=== PATIENT | female | born 1975 | race Caucasian/White ===

== ENCOUNTER 2017-03-20 09:58 | Emergency (ER) | payer OTHER ==
[~2017-03-20] VITALS: Ht 165.1 cm; Wt 68.5 kg
[~2017-03-20 09:58] MED LIST: ACYC800T57 PO; HYDR-906 PO; IBUP-1542 PO; TRAM50TA2 PO
[2017-03-20 10:01] VITALS: Ht 165.1 cm; Wt 68.5 kg
[2017-03-20] MEDS ORDERED: CIPR500T4 PO (10:54)
[2017-03-20] MEDS ORDERED: DIPHTH/TET/ACEL PERTUSS (ADULT) 0.5 ML VIAL IM* ONE (11:00)
--- NOTE | 2017-03-20 11:20 | ERD ---
ER Documentation Chief Complaint Date/Time DATE: 03/20/17 TIME: 11:18 Chief Complaint STEPPED ON NAIL AT 5AM TODAY LEFT FOOT WANTS TETANUS SHOT HPI Patient is a 41-year-old female with a past medical history of lupus who presents to the ED with nail puncture wound on her left foot during work this morning. Patient states that she works overnight at [employer] and stepped on a nail with her tennis shoes. Denies fever or chills. Patient is not up-to-date with her recent tetanus shot. Patient has no other complaints. ROS All systems reviewed and are negative except as per history of present illness. Medications Home Meds Active Scripts Ciprofloxacin Hcl* (Ciprofloxacin Hcl*) 500 Mg Tablet, 500 MG PO BID for 3 Days , TAB Prov:LIBIA SCOTT PA-C 03/20/17 Ibuprofen* (Motrin*) 600 Mg Tab, 600 MG PO Q6, #30 TAB Prov:JEN ADAME 07/04/16 Hydrocodone/Acetaminophen ([place] 5-325 Tablet) 1 Each Tablet, 1 EACH PO Q4, #20 TAB Prov:JEN ADAME 07/04/16 Acyclovir* (Zovirax*) 800 Mg Tablet, 800 MG PO 5 TIMES DAILY for 7 Days, TAB Prov:JEN ADAME 07/04/16 Tramadol HCl (Tramadol HCl) 50 Mg Tab, 50 MG PO Q4 Y for PAIN, #20 TAB Prov:ERIK BETANCOURT 05/09/15 Allergies Allergies: Coded Allergies: No Known Allergy (Unverified , 07/04/16) PMhx/Soc History of Surgery: No Anesthesia Reaction: No Hx Neurological Disorder: No Hx Respiratory Disorders: No Hx Cardiac Disorders: No Hx Psychiatric Problems: No Hx Miscellaneous Medical Probl: Yes (lupus) Hx Alcohol Use: No Hx Substance Use: No Hx Tobacco Use: No FmHx Family History: No coronary disease, No diabetes, No other Physical Exam Vitals Vital Signs Date Time Temp Pulse Resp B/P Pulse Ox O2 Delivery O2 Flow Rate FiO2 03/20/17 10:01 98.6 65 18 112/66 98 Physical Exam GENERAL: Well-developed, well-nourished female. Appears in no acute distress. HEAD: Normocephalic, atraumatic. EYES: Pupils are equally reactive bilaterally. EOMs grossly intact. No conjunctival erythema. ENT: Moist mucous membranes. No uvula deviation. No kissing tonsils. No exudates. NECK: Supple. No lymphadenopathy or thyromegaly. No meningismus. negative kernig. negative brudinski. LUNG: Clear to auscultation bilaterally. No rhonchi, wheezing, rales or coarse breath sounds. HEART: Regular rate and rhythm. No murmurs, rubs or gallops. Extremities: Equal pulses bilaterally. No peripheral clubbing, cyanosis or edema. No unilateral leg swelling. NEUROLOGIC: Alert and oriented. Moving all four extremities. 5/5 strength in all extremities. Normal speech. Steady gait. SKIN: Normal color. Warm and dry. 1 cm puncture wound on the plantar surface of the left foot with mild ecchymosis. No signs of foreign body. No signs of infection. Range of motion intact. Pulses intact. Capillary refill < 2 seconds Results 24 hrs Current Medications Medications (Trade) Dose Ordered Sig/[place] Route PRN Reason Start Time Stop Time Status Last Admin Dose Admin Diphtheria/ Tetanus/Acell Pertussis (Adacel) 0.5 ml ONCE ONCE IM* 03/20/17 11:00 03/20/17 11:01 DC 03/20/17 10:59 Procedures/MDM ER COURSE: I kept the patient and/or family informed of laboratory and diagnostic imaging results throughout the emergency room course. MEDICAL DECISION MAKING: This is a 41-year-old female who presents with puncture wound after stepping on a nail this morning. Vital signs were reviewed. Patient is afebrile. Patient is not hypoxic. Patient is not toxic or ill-appearing. Patient will be given a tetanus vaccine here in the ED as prophylaxis. Patient had her wound dressed. Low suspicion for necrotizing fasciitis, SJS, toxic epidermal necrolysis, [place], erythema multiforme, gangrene, scarlet fever, meningococcemia, sepsis , anaphylaxis, sepsis, deep space infection, or foreign body. Low suspicion for dislocation, fracture, septic joint, compartment syndrome, osteomyelitis, cellulitis, avascular necrosis, neurological injury, vascular injury, tendon laceration. DISCHARGE: At this time, patient is stable for discharge and outpatient management with no new complaints during the ER course. Patient was sent home with ciprofloxacin to cover for Pseudomonas. Patient will be discharged home with instructions to recheck for new or worsening symptoms such as fever, nausea, weakness, LOC and to follow up with primary care in the next 1-2 days. Patient was advised to return to the ER for any new or worsening symptoms. Plan was discussed and patient and/or family understands and agrees. Home instructions were given. Departure Diagnosis: Primary Impression: Puncture wound of skin from metal nail Condition: Stable Patient Instructions: Puncture Wound, General Additional Instructions: Call your primary care doctor TOMORROW for an appointment during the next 1-2 days.See the doctor sooner or return here if your condition worsens before your appointment time. LIBIA SCOTT PA-C Mar 20, 2017 11:20
== END 2017-03-20 12:06 | disposition home or self-care (01) ==
LOC: FTE 09:58
DX: S91.332A Puncture wound without foreign body, left foot, initial encounter (principal); W45.0XXA Nail entering through skin, initial encounter; Y92.89 Other specified places as the place of occurrence of the external cause; Z23 Encounter for immunization
CPT/HCPCS: 90471; 90715

== ENCOUNTER 2017-07-08 21:34 | Emergency (ER) | payer OTHER ==
[~2017-07-08] VITALS: Ht 165.1 cm; Wt 65.0 kg
[~2017-07-08 21:34] MED LIST changes: +CIPR500T4 PO
[2017-07-08 21:40] VITALS: Ht 165.1 cm; Wt 65.0 kg
--- NOTE | 2017-07-09 00:12 | ERD ---
ER Documentation Chief Complaint Chief Complaint c/o cough x1 month, HPI The patient is a 41-year-old female, presenting to the ER because of intermittent cough for more than a month. She was seen by her physician 2 days ago prescribed her antibiotic, however she is not taking her medication. He denies night sweats, neck pain, chest pain, abdominal pain, vomiting, dysuria, diarrhea. He does not smoke nor drink Past medical History:SLE Past surgical history: None ROS All systems reviewed and are negative except as per history of present illness. Medications Home Meds Active Scripts Albuterol Sulfate* (Albuterol Sulfate* Neb) 0.083%-3 Ml Neb, 10 MG NEB Q4 Y for SHORTNESS OF BREATH, #30 EA Prov:LEON HILLIARD MD 07/09/17 Dextromethorphan Hb-Promethazine Hcl* (Promethazine DM* Syrup) 473 Ml Syrup, 10 ML PO Q6 Y for COUGH, #120 ML Prov:LEON HILLIARD MD 07/09/17 Levofloxacin* (Levaquin*) 750 Mg Tablet, 750 MG PO DAILY for 5 Days, TAB Prov:LEON HILLIARD MD 07/09/17 Ciprofloxacin Hcl* (Ciprofloxacin Hcl*) 500 Mg Tablet, 500 MG PO BID for 3 Days , TAB Prov:LIBIA SCOTT PA-C 03/20/17 Ibuprofen* (Motrin*) 600 Mg Tab, 600 MG PO Q6, #30 TAB Prov:JEN ADAME 07/04/16 Hydrocodone/Acetaminophen ([place] 5-325 Tablet) 1 Each Tablet, 1 EACH PO Q4, #20 TAB Prov:JEN ADAME 07/04/16 Acyclovir* (Zovirax*) 800 Mg Tablet, 800 MG PO 5 TIMES DAILY for 7 Days, TAB Prov:WENDIJEN SOLORZANO C 07/04/16 Tramadol HCl (Tramadol HCl) 50 Mg Tab, 50 MG PO Q4 Y for PAIN, #20 TAB Prov:ERIK BETANCOURT 05/09/15 Allergies Allergies: Coded Allergies: No Known Allergy (Unverified , 07/04/16) PMhx/Soc History of Surgery: No Anesthesia Reaction: No Hx Neurological Disorder: No Hx Respiratory Disorders: No Hx Cardiac Disorders: No Hx Psychiatric Problems: No Hx Miscellaneous Medical Probl: Yes (lupusm, menengitis ) Hx Alcohol Use: No Hx Substance Use: No Hx Tobacco Use: No Smoking Status: Never smoker Physical Exam Vitals Vital Signs Date Time Temp Pulse Resp B/P Pulse Ox O2 Delivery O2 Flow Rate FiO2 07/09/17 03:06 98.0 81 19 111/71 98 Room Air 07/09/17 01:21 88 20 98 21 07/08/17 21:40 99.1 94 22 123/72 96 Physical Exam Const: No acute distress. Head: Atraumatic. Eyes: Normal Conjunctiva. ENT: Normal External Ears, Nose and Mouth. Neck: Full range of motion. No meningismus. Resp: minimal Expiratory wheezes Cardio: Regular rate and rhythm. Abd: Soft, non distended, normal bowel sounds, non tender. Skin: No petechiae or rashes. Back: No midline or flank tenderness. Ext: No cyanosis, or edema. Neur: Awake and alert. No focal deficit Psych: Normal Mood and Affect. Result Diagram: 07/08/17 2345 07/08/17 2345 Results 24 hrs Laboratory Tests Test 07/08/17 23:45 07/09/17 00:00 White Blood Count 16.010^3/ul Red Blood Count 4.8210^6/ul Hemoglobin 14.3g/dl Hematocrit 44.3% Mean Corpuscular Volume 91.9fl Mean Corpuscular Hemoglobin 29.7pg Mean Corpuscular Hemoglobin Concent 32.3g/dl Red Cell Distribution Width 13.9% Platelet Count 32351^3/UL Mean Platelet Volume 11.7fl Neutrophils % % Lymphocytes % % Monocytes % % Eosinophils % % Basophils % % Nucleated Red Blood Cells % 0.0/100WBC Neutrophils # 10^3/ul Lymphocytes # 10^3/ul Monocytes # 10^3/ul Eosinophils # 10^3/ul Basophils # 10^3/ul Nucleated Red Blood Cells # 10^3/ul Prothrombin Time 14.6Sec Prothrombin Time Ratio 1.1 INR International Normalized Ratio 1.14 Activated Partial Thromboplast Time 43.1Sec Sodium Level 141mmol/L Potassium Level 4.3mmol/L Chloride Level 107mmol/L Carbon Dioxide Level 28mmol/L Anion Gap 10 Blood Urea Nitrogen 15mg/dl Creatinine 0.62mg/dl Glucose Level 92mg/dl Lactic Acid Level 1.2mmol/L Calcium Level 8.8mg/dl Total Bilirubin 0.5mg/dl Direct Bilirubin 0.00mg/dl Indirect Bilirubin 0.5mg/dl Aspartate Amino Transf (AST/SGOT) 36IU/L Alanine Aminotransferase (ALT/SGPT) 29IU/L Alkaline Phosphatase 78IU/L Total Protein 7.9g/dl Albumin 3.4g/dl Globulin 4.50g/dl Albumin/Globulin Ratio 0.75 Urine Color YELLOW Urine Clarity CLEAR Urine pH 6.0 Urine Specific [place] 1.020 Urine Ketones NEGATIVEmg/dL Urine Nitrite NEGATIVEmg/dL Urine Bilirubin NEGATIVEmg/dL Urine Urobilinogen 2+mg/dL Urine Leukocyte Esterase 2+Riya/ul Urine Microscopic RBC 3/HPF Urine Microscopic WBC 5/HPF Urine Squamous Epithelial Cells FEW/HPF Urine Mucus FEW/HPF Urine Hemoglobin NEGATIVEmg/dL Urine Glucose NEGATIVEmg/dL Urine Total Protein NEGATIVEmg/dl Current Medications Medications (Trade) Dose Ordered Sig/[place] Route PRN Reason Start Time Stop Time Status Last Admin Dose Admin Levalbuterol (Xopenex Neb) 1.25 mg ONCE ONCE N 07/09/17 01:30 07/09/17 01:31 DC 07/09/17 01:20 Ipratropium [place] (Atrovent 0.02% (Neb)) 0.5 mg ONCE ONCE HHN 07/09/17 01:30 07/09/17 01:31 DC 07/09/17 01:20 Levofloxacin (Levaquin) 750 mg ONCE ONCE PO 07/09/17 02:30 07/09/17 02:33 DC 07/09/17 03:06 Procedures/[place] [id number] Radiology Main Line: [phone] DIAGNOSTIC IMAGING REPORT Patient: REAL COURTNEY : 1975 Age: 41 Sex: F MR #: [id number] DOS: 07/09/17 0000 Ordering MD: LEON HILLIARD MD Location: E/R Room/Bed: PROCEDURE: Chest. CLINICAL INDICATION: Cough. TECHNIQUE: Single frontal view of the chest was obtained. COMPARISON: 05/09/2015. FINDINGS: The cardiac silhouette is magnified. The aortic arch is unremarkable. There is bilateral hilar prominence. There is mild left basilar atelectasis. There is no focal consolidation, vascular congestion or pleural effusion. There is no pneumothorax. IMPRESSION: Bilateral hilar prominence suggestive of pulmonary artery hypertension. Mild left basilar atelectasis. .Jaylan Manning MD, Date Time Electronically viewed and signed by .Jaylan Manning MD, MD on 07/09/2017 01:50 .T/ CC: LEON HILLIARD MD EKG: Read by emergency physician Rate/Rhythm: Normal Sinus Rhythm 83 beats/min QRS, ST, T-waves: No ST elevation, no T inversion, RAD, nonspecific T abnormality, prolonged QT Impression: Abnormal EKG MEDICAL MAKING DECISION: The patient is a 41-year-old female, presenting with acute bronchitis acute cystitis. She was treated with Xopenex 1.25 mg and Atrovent 0.5 mg for wheezing with good response, Levaquin p.o. for acute bronchitis and acute cystitis The differential diagnoses considered include but are not limited to asthma, COPD, pneumonia, pulmonary embolus, pleural effusion, congestive heart failure. Departure Diagnosis: Primary Impression: UTI (urinary tract infection) Additional Impression: Bronchitis Condition: Good Comments She was discharged with Levaquin, Phenergan DM, albuterol MDI I discussed the findings with the patient. I advised the patient to follow-up with the primary physician in about 1-2 days, sooner if needed and return if any concern. Disclaimer: Inadvertent spelling and grammatical errors are likely due to EHR/ dictation software use and do not reflect on the overall quality of patient care. Also, please note that the electronic time recorded on this note does not necessarily reflect the actual time of the patient encounter. LEON HILLIARD MD Jul 09, 2017 00:12
[2017-07-09] MEDS ORDERED: LEVALBUTEROL (NEB) 1.25 MG/0.5 ML AMP HHN ONE (01:30)
[2017-07-09] MEDS ORDERED: IPRATROPIUM (NEB) 0.5 MG/2.5 ML AMP HHN ONE (01:30)
--- NOTE | 2017-07-09 01:51 | RADRPT ---
PROCEDURE: Chest. CLINICAL INDICATION: Cough. TECHNIQUE: Single frontal view of the chest was obtained. COMPARISON: 05/09/2015. FINDINGS: The cardiac silhouette is magnified. The aortic arch is unremarkable. There is bilateral hilar pro minence. There is mild left basilar atelectasis. There is no focal consolidation, vascular congestio n or pleural effusion. There is no pneumothorax. IMPRESSION: Bilateral hilar prominence suggestive of pulmonary artery hypertension. Mild left basilar atelectasis. .Jaylan Manning MD, MD Date Time Electronically viewed and signed by .Jaylan Manning MD, MD on 07/09/2017 01:50 .T/
[2017-07-09] MEDS ORDERED: LEVOFLOXACIN 750 MG TABLET PO ONE (02:30)
[2017-07-09] MEDS ORDERED: LEVO750T25 PO (02:38)
[2017-07-09] MEDS ORDERED: ALBU2.5V3 NEB (02:39)
[2017-07-09] MEDS ORDERED: D-ME473S2 PO (02:39)
[2017-07-09 03:06] VITALS: BP 111/71; PULSE 81; RESP 19; TEMP 98
== END 2017-07-09 03:08 | disposition home or self-care (01) ==
LOC: E/R 21:34
DX: N39.0 Urinary tract infection, site not specified (principal); J20.9 Acute bronchitis, unspecified; R06.02 Shortness of breath
CPT/HCPCS: 36415; 71010; 80053; 81001; 83605; 85025; 85610; 85730; 87040; 87086; 93005; 94664; Z7502; Z7610